=== PATIENT | female | born 1995 | race African-American/Black ===

== ENCOUNTER 2017-10-22 01:26 | Emergency (ER) | payer BC ==
[2017-10-22] MEDS ORDERED: Acetaminophen 500 MG TAB ONE (02:47)
== END 2017-10-22 02:52 | disposition home or self-care (01) ==
LOC: ERS 01:26
DX: B37.3 Candidiasis of vulva and vagina (principal); R51 Headache
CPT/HCPCS: 99283

== ENCOUNTER 2019-07-11 21:21 | Emergency (ER) | payer BC ==
[2019-07-11 22:28] LABS: #Basophils 0.1 thou/uL (0.0-0.2); #Eosinphils 0.2 thou/uL (0.0-0.7); #Lymphocytes 3.3 thou/uL (1.20-3.40); #Monocytes 1.3 thou/uL (0.11-0.59); #Neutrophils 14.3 thou/uL (1.40-6.50); %Basophils 0.7 % (0.0-1.0); %Eosinophils 0.9 % (0.0-10.0); %Monocytes 6.6 % (0.0-10.0); %Neutrophils 74.7 % (42.0-75.0); Hemoglobin 11.8 g/dL (12.0-16.0); Mean Corpuscular HGB CONC 33.3 g/dL (32.0-36.0); Mean Platelet Volume 7.5 fL (7.4-10.4); Platelet Count 203 thou/uL (130-400); RBC Distribution Width 13.4 % (11.5-14.5); White Blood Cell (WBC) Count 19.2 thou/uL (4.8-10.8)
--- NOTE | 2019-07-11 23:45 | ULT ---
US Pelvic W Doppler HISTORY: Vaginal bleeding COMPARISON: None. FINDINGS: Real-time imaging of the pelvis show a single viable intrauterine . [place]-rump daniela gth measurements are 2 cm corresponding to 8 weeks 4 days. The heart rate is 177 bpm. A tiny subchorionic bleed is seen. The right and left adnexa are normal. Doppler evaluation with spectral analysis: Normal flow shown to both ovaries. IMPRESSION: Single viable intrauterine crown-rump length measurements correspond to 8 weeks 4 days. Estimated date of delivery is 02/16/2020. There is a tiny subchorionic bleed seen.
[2019-07-12 00:13] LABS: Bacteria/HPF 1+ HPF (None Seen); Bilirubin Negative (Negative); Blood, Urine 1+ (Negative); Clarity Turbid (Clear); Glucose, Urine (Dipstick) Normal (Negative); Leukocyte 500 Leu/uL (Negative); Nitrite Negative (Negative); Protein, Urine (Dipstick) Negative (Neg-Trace); RBC/HPF 21-50 HPF (0-3); WBC/HPF Greater than 50 HPF (0-3)
== END 2019-07-12 00:30 | disposition home or self-care (01) ==
LOC: ERS 21:21
DX: O20.8 Other hemorrhage in early pregnancy (principal); O23.41 Unspecified infection of urinary tract in pregnancy, first trimester; Z3A.08 8 weeks gestation of pregnancy
CPT/HCPCS: 36415; 76856; 81003; 81015; 84702; 85025; 86900; 86901; 87086; 87480; 87491; 87510; 87591; 87660; 93976

== ENCOUNTER 2020-06-27 20:17 | Emergency (ER) | payer BC, OTHER ==
[2020-06-27 21:03] LABS: #Basophils 0.1 thou/uL (0.0-0.2); #Eosinphils 0.4 thou/uL (0.0-0.7); #Lymphocytes 3.2 thou/uL (1.20-3.40); #Monocytes 0.7 thou/uL (0.11-0.59); #Neutrophils 6.4 thou/uL (1.40-6.50); %Basophils 0.7 % (0.0-1.0); %Lymphocytes 29.9 % (21.0-51.0); %Monocytes 6.4 % (0.0-10.0); Hemoglobin 13.1 g/dL (12.0-16.0); Mean Corpuscular HGB CONC 31.3 g/dL (32.0-36.0); Mean Corpuscular Hemoglobin 28.9 pg (27.0-31.0); Mean Corpuscular Volume 92.4 fL (78.0-98.0); Mean Platelet Volume 7.6 fL (7.4-10.4); Platelet Count 269 thou/uL (130-400); RBC Distribution Width 14.5 % (11.5-14.5); Red Blood Cell (RBC) Count 4.55 mill/uL (4.20-5.40); White Blood Cell (WBC) Count 10.9 thou/uL (4.8-10.8)
[2020-06-27 21:07] LABS: Bacteria/HPF None Seen HPF (None Seen); Bilirubin Negative (Negative); Blood, Urine Negative (Negative); Clarity Clear (Clear); Glucose, Urine (Dipstick) Normal (Negative); Ketone, Urine Negative (Negative); Leukocyte 500 Leu/uL (Negative); Nitrite Negative (Negative); Protein, Urine (Dipstick) 10 mg/dL (Neg-Trace); RBC/HPF 0-3 HPF (0-3); Specific Gravity, Urine 1.032 (1.002-1.036); pH, Urine 6.5 (5.0-9.0)
[2020-06-27 21:10] LABS: Pregnancy Test - Urine (BHCG) Negative (Negative); Pregu Control Background? CLEAR/WHITE (CLR/WHITE); Pregu Control Bar Appear? YES (CONTROL BAR); Specific Gravity 1.032 (1.002-1.036)
[2020-06-27 21:24] LABS: ALT (SGPT) 10 U/L (8-55); AST (SGOT) 11 U/L (5-34); Albumin 4.4 g/dL (3.5-5.0); Alkaline Phosphatase 124 U/L (40-110); Anion Gap 13 mmol/L (10-20); BUN (Urea Nitrogen) 14 mg/dL (7.0-18.7); Bilirubin, Total 0.2 mg/dL (0.2-1.2); Calc. Creatinine Clearance 0 mL/min (70-130); Calcium 9.4 mg/dL (7.8-10.44); Carbon Dioxide 27 mmol/L (22-29); Chloride 106 mmol/L (98-107); Globulin 3.2 g/dL (2.4-3.5); Glucose 96 mg/dL (70-105); Protein, Total 7.6 g/dL (6.0-8.3); Sodium 142 mmol/L (136-145)
[2020-06-27] MEDS ORDERED: Lidocaine 1% PF 5 ML VIAL ONE (23:59)
[2020-06-27] MEDS ORDERED: cefTRIAXone\\ROCEPHIN 250 MG VIAL ONE (23:59)
[2020-06-27] MEDS ORDERED: Azithromycin 250 MG TAB ONE (23:59)
[2020-06-29 20:42] LABS: Chlamydia by PCR Inconclusive (NotDetected); GC by PCR Inconclusive (NotDetected)
== END 2020-06-28 00:38 | disposition home or self-care (01) ==
LOC: ERS 20:17
DX: N89.8 Other specified noninflammatory disorders of vagina (principal)
CPT/HCPCS: 36415; 80053; 81003; 81015; 81025; 85025; 87480; 87491; 87510; 87591; 87660; 96372; 99284; J0696

== ENCOUNTER 2020-08-01 18:35 | Emergency (ER) | payer OTHER ==
[2020-08-01 19:45] LABS: Bilirubin Negative (Negative); Blood, Urine 1+ (Negative); Clarity Turbid (Clear); Glucose, Urine (Dipstick) Normal (Negative); Ketone, Urine Negative (Negative); Leukocyte 500 Leu/uL (Negative); Nitrite Negative (Negative); Protein, Urine (Dipstick) 20 mg/dL (Neg-Trace)
[2020-08-01 19:53] LABS: Bacteria/HPF 2+ HPF (None Seen); Squamous Epithelial 21-50 HPF (0-3); WBC/HPF 21-50 HPF (0-3); Yeast-Budding 1+ HPF (None Seen); Yeast-Hyphae 1+ HPF (None Seen)
[2020-08-01 19:55] LABS: Pregnancy Test - Urine (BHCG) Negative (Negative); Pregu Control Background? CLEAR/WHITE (CLR/WHITE); Pregu Control Bar Appear? YES (CONTROL BAR)
[2020-08-01] MEDS ORDERED: cefTRIAXone\\ROCEPHIN 500 MG VIAL ONE (20:46)
[2020-08-01] MEDS ORDERED: Lidocaine 1% PF 5 ML VIAL ONE (20:46)
[2020-08-03 21:52] LABS: Chlamydia by PCR Not Detected (NotDetected); GC by PCR Not Detected (NotDetected)
== END 2020-08-01 21:00 | disposition home or self-care (01) ==
LOC: ERS 18:35
DX: N72 Inflammatory disease of cervix uteri (principal)
CPT/HCPCS: 81003; 81015; 81025; 87480; 87491; 87510; 87591; 87660; 96372; 99283; J0696

== ENCOUNTER 2021-09-04 00:05 | Emergency (ER) | payer OTHER ==
[2021-09-04 00:31] LABS: Bacteria/HPF None Seen HPF (None Seen); Bilirubin Negative (Negative); Blood, Urine Negative (Negative); Clarity Clear (Clear); Glucose, Urine (Dipstick) Normal (Negative); Ketone, Urine Negative (Negative); Leukocyte 25 Leu/uL (Negative); Nitrite Negative (Negative); Protein, Urine (Dipstick) 10 mg/dL (Neg-Trace); Specific Gravity, Urine 1.029 (1.002-1.036); Squamous Epithelial 0-3 HPF (0-3); Urobilinogen Normal mg/dL (Less than 2); WBC/HPF 0-3 HPF (0-3); pH, Urine 6.5 (5.0-9.0)
[2021-09-04 00:59] LABS: #Basophils 0.1 thou/uL (0.0-0.2); #Eosinphils 0.1 thou/uL (0.0-0.7); #Lymphocytes 2.8 thou/uL (1.20-3.40); #Monocytes 0.7 thou/uL (0.11-0.59); #Neutrophils 11.1 thou/uL (1.40-6.50); %Basophils 0.7 % (0.0-1.0); %Eosinophils 0.7 % (0.0-10.0); %Lymphocytes 19.1 % (21.0-51.0); %Neutrophils 74.6 % (42.0-75.0); Hemoglobin 10.8 g/dL (12.0-16.0); Mean Corpuscular Hemoglobin 26.4 pg (27.0-31.0); Mean Corpuscular Volume 82.4 fL (78.0-98.0); Platelet Count 280 thou/uL (130-400); RBC Distribution Width 16.1 % (11.5-14.5); White Blood Cell (WBC) Count 14.9 thou/uL (4.8-10.8)
== END 2021-09-04 01:58 | disposition home or self-care (01) ==
LOC: ERS 00:05
DX: O20.0 Threatened abortion (principal); Z3A.08 8 weeks gestation of pregnancy
CPT/HCPCS: 36415; 81003; 81015; 84702; 85025; 86900; 86901

== ENCOUNTER 2024-01-18 11:58 | Emergency (ER) | payer BC, OTHER ==
[2024-01-18] MEDS ORDERED: Lidocaine 1% PF 5 ML VIAL ONE (12:56)
[2024-01-18] MEDS ORDERED: cefTRIAXone (ROCEPHIN) 500 MG VIAL ONE (12:57)
[2024-01-18 13:46] LABS: Bacteria/HPF None Seen HPF (None Seen); Bilirubin Negative (Negative); Blood, Urine 1+ (Negative); CAUTI Indications for Culture Dysuria,urgency,freq; Clarity Clear (Clear); Glucose, Urine (Dipstick) Normal (Negative); Ketone, Urine Negative (Negative); Leukocyte 75 Leu/uL (Negative); Nitrite Negative (Negative); Protein, Urine (Dipstick) Negative (Neg-Trace); Specific Gravity, Urine 1.025 (1.002-1.036); Squamous Epithelial 0-3 HPF (0-3); Urobilinogen Normal mg/dL (Less than 2)
[2024-01-18 13:48] LABS: Urine Culture Reflex No No
[2024-01-18 16:07] LABS: GC by PCR, Vaginal Swab Not Detected (NotDetected)
== END 2024-01-18 14:00 | disposition home or self-care (01) ==
LOC: ERS 11:58
DX: N76.0 Acute vaginitis (principal)
CPT/HCPCS: 81001; 87480; 87510; 87591; 87660; 96372; 99283; J0696